=== PATIENT | male | born 1965 | race Caucasian/White ===

== ENCOUNTER 2020-09-19 12:43 | Emergency (ER) | payer OTHER ==
[2020-09-19 15:25] LABS: HEMOGLOBIN 14.7 gm/dl (14.0-17.5); RED BLOOD COUNT 4.46 M/UL (4.20-5.50); WHITE BLOOD COUNT 18.9 K/UL (4.5-11.0)
[2020-09-19 15:49] LABS: BUN/CREATININE RATIO 31 (0-10)
[2020-09-19] MEDS ORDERED: CEPHALEXIN500 M1 PO (16:54)
[2020-09-19] MEDS ORDERED: BACTRIM DS TAB1 EACH PO (16:54)
== END 2020-09-19 17:16 | disposition home or self-care (01) ==
LOC: ER1 12:43
PROVIDERS: Physician Assistant
DX: L53.9 Erythematous condition, unspecified (principal); R60.0 Localized edema; Z87.891 Personal history of nicotine dependence
CPT/HCPCS: 36415; 80053; 85025; 85652; 86140; 87040; 93926; 93971; 96374; 99284; J0690